=== PATIENT | male | born 1985 | race African-American/Black ===

== ENCOUNTER 2017-05-08 04:00 | Inpatient (IN) | payer OTHER ==
[~2017-05-08] VITALS: Ht 185.4 cm; Wt 99.8 kg
--- NOTE | ~2017-05-08 | PN ---
Unit #: [id number] #: [id number] Patient: KRAIG TORREZ [id number] [facility] [address] [place] [address] [id number] I MR#: [id number] NAME: KRAIG TORREZ ROOM: P201 Age: 32 Sex: M Admission Date: 05/08/2017 : 1985 Attending Physician: Lindsay Villela M.D. Admitting Physician: Christine Black PROGRESS NOTES DATE 05/10/2017 DISCUSSION Mr. Torrez is a 32-year-old, male who was seen today and chart was reviewed and case was discussed with the staff. He has been anxious, withdraw and rather seclusive to himself. Meanwhile, he has been cooperative with the treatment recommendations. He has been taking the medication and tolerating them fairly well with no reported side effects. MENTAL STATUS EXAM Young male who was casually dressed with fair personal hygiene, appears to be in no acute distress or discomfort. He was awake and alert on interaction with intact orientation. His mood was anxious with congruent affect. He denies any suicidal or homicidal ideation. Also, denies any auditory or visual hallucinations. His insight and judgement remains slightly impaired. TREATMENT PLAN 1. We will continue him on his current medications and treatment protocol. We will monitor his response to the medication and make further adjustments as needed. 2. We will continue to follow up. Dictated by... Christine Black/marcellus TD: 05/12/2017 02:30 JOB #: [id number] Unit #: [id number] #: [id number] Patient: KRAIG TORREZ JONAHSHAMEKA PROGRESS NOTES Page 1 of 1 X Lindsay Villela MD PROGRESS NOTE
--- NOTE | ~2017-05-08 | PN ---
Unit #: [id number] #: [id number] Patient: KRAIG TORREZ [id number] [facility] [address] [place] [address] [id number] I MR#: [id number] NAME: KRAIG TORREZ ROOM: [facility] Age: 32 Sex: M Admission Date: 05/08/2017 : 1985 Attending Physician: Lindsay Villela M.D. Admitting Physician: Christine Black PROGRESS NOTES DATE OF SERVICE 05/09/2017 DISCUSSION Mr. Torrez is a 32-year-old male with substance abuse and mood disorder who was seen today. Chart was reviewed and case was discussed with the staff. He has been anxious, withdrawn, and rather seclusive to himself. Meanwhile, he has been compliant with treatment recommendations and has been taking the medications and tolerating them fairly well. MENTAL STATUS EXAMINATION Young male who is casually dressed with fair personal hygiene and appears to be in no acute distress or discomfort. The patient was awake and alert on interaction with intact orientation. His mood is anxious with congruent affect. His speech is slow and goal-directed. He denies any suicidal or homicidal ideations. His insight and judgment remain slightly impaired. TREATMENT PLAN 1. We will continue him on his current medications and treatment protocol. We will monitor his response to the medications and make further adjustments as needed. 2. We will continue to follow up. Dictated by... Lindsay Villela M.D. IAA/bzg TD: 05/09/2017 09:29 JOB #: [id number] Unit #: [id number] #: [id number] Patient: KRAIG TORREZ PROGRESS NOTES Page 1 of 1 X Lindsay Villela MD PROGRESS NOTE
--- NOTE | ~2017-05-08 | PN ---
Unit #: [id number] #: [id number] Patient: KRAIG TORREZ [id number] [facility] [address] [place] [address] [id number] MR#: [id number] NAME: KRAIG TORREZ ROOM: P201 Age: 32 Sex: M Admission Date: 05/08/2017 : 1985 Attending Physician: Lindsay Villela M.D. Admitting Physician: Christine Black PROGRESS NOTES DATE May 11, 2017 DISCUSSION Mr. Torrez is a 32-year-old male, who was seen today and chart was reviewed and the case was discussed with the staff. He has been anxious, withdrawn, and rather seclusive to himself but does not appear to be in any acute distress or discomfort, and has been calm and cooperative, and compliant with the treatment recommendations and he has expressed a desire to go to be able to go to long-term rehab level of care after being discharged from the hospital. MENTAL STATUS EXAMINATION Young male, who was casually dressed with fair personal hygiene and appears to be in no acute distress or discomfort. He was awake and alert on interaction with intact orientation. His mood is anxious with a congruent affect. He denies any suicidal or homicidal ideations. His insight and judgment remain slightly impaired. TREATMENT PLAN 1. We will continue him on his current medications and treatment protocol, and will monitor his response to the medications, and make further adjustments as needed. 2. We will continue to followup. Dictated by... Christine Black/yuliay TD: 05/12/2017 13:10 JOB #: [id number] Unit #: [id number] #: [id number] Patient: KRAIG TORREZ PROGRESS NOTES Page 1 of 1 X Lindsay Villela MD PROGRESS NOTE
--- NOTE | ~2017-05-08 | DS ---
Unit #: [id number] #: [id number] Patient: KRAIG MONCADA [id number] [facility] [address] [place] [address] [id number] I MR#: [id number] NAME: KRAIG MONCADA ROOM: [facility] Age: 32 Sex: M Admission Date: 05/08/2017 : 1985 Discharge Date: 05/14/2017 Attending Physician: Lindsay Villela M.D. DISCHARGE SUMMARY REASON FOR ADMISSION Noncompliant with medication, using drugs. DIAGNOSTIC STUDIES LABORATORY RESULTS: Urine drug screen positive for amphetamine and marijuana. HOSPITAL COURSE The patient was admitted to inpatient unit on 05/08/2017 and discharged on 05/14/2017. The patient was treated on the inpatient unit with group therapy, individual therapy, chemical dependency group, medication management. The patient was responsive to treatment, showed improvement. Subsequently, the patient was discharged with a plan to follow up in outpatient program. DISCHARGE MEDICATIONS Risperdal 1 mg at bedtime for psychosis, Seroquel 100 mg at bedtime for psychosis. The patient needed two antipsychotic as the patient did not respond with one. The patient is not a candidate for clozapine at this time due to noncompliance. Recommending to taper off Risperdal once the patient is stable for at least 6 months. DISCHARGE DIAGNOSES Psychiatric: Bipolar mood disorder, recurrent, severe, depressed, with psychotic feature, F31.9; amphetamine use disorder, severe, F15.20; cannabis abuse disorder, moderate, F12.20. Secondary diagnosis: Deferred. Medical diagnosis: None. Stressors: Psychosocial stressors. DISCHARGE INSTRUCTIONS The patient to follow up in outpatient clinic as per geriatric social work professor. CONDITION ON DISCHARGE The patient was pleasant and cooperative. Denied any psychotic symptom or any suicidal ideation. PROGNOSIS Guarded. Unit #: [id number] #: [id number] Patient: KRAIG MONCADA DIET AND ACTIVITY As tolerated. Dictated by... Christine Kim/zack TD: 05/15/2017 02:21 JOB #: [id number] DISCHARGE SUMMARY Page 1 of 1 X Yogesh Starr MD X DISCHARGE SUMMARY
--- NOTE | ~2017-05-08 | PN ---
Unit #: [id number] #: [id number] Patient: KRAIG MONCADA [id number] [facility] [address] [place] [address] [id number] I MR#: [id number] NAME: KRAIG MONCADA ROOM: 12 Age: 32 Sex: M Admission Date: 05/08/2017 : 1985 Attending Physician: Lindsay Villela M.D. Admitting Physician: Christine Black PROGRESS NOTES DATE 05/13/2017 DISCUSSION Mr. Hudson is a 32-year-old male. The patient interviewed, chart reviewed, and obtained information from the nursing staff. The patient reports still feeling anxious, nervous, and wanted his Seroquel to be increased. The patient was able to participate in program, reported that he wanted to go to a thirty day program. 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 REVIEW OF SYSTEMS Complete review of systems unremarkable. MENTAL STATUS EXAMINATION General appearance: Patient dressed casually. Attention span and concentration, fair. Oriented in time, place, and person. Mood and affect, labile. Speech, monotone. Thought process, concrete. The patient denied any thoughts of harming self or others or any psychotic symptoms. Recent and remote memory, poor. Insight and judgment, poor. DIAGNOSES 1. Bipolar mood disorder, recurrent, severe, depressed, F31.9. 2. Amphetamine use disorder, severe, F15.20. ASSESSMENT/PLAN Advised to continue with the current medication and therapeutic protocol, and if needed consider further adjustment of medication. Dictated by... Christine Kim/yuliya TD: 05/14/2017 10:56 JOB #: [id number] Unit #: [id number] #: [id number] Patient: KRAIG MONCADA PROGRESS NOTES Page 1 of 1 X Yogesh Starr MD X PROGRESS NOTE
--- NOTE | ~2017-05-08 | PA ---
Unit #: [id number] #: [id number] Patient: KRAIG TORREZ [id number] [facility] [address] [place] [address] [id number] MR#: [id number] NAME: KRAIG TORREZ ROOM: P186 Age: 32 Sex: M Admission Date: 05/08/2017 : 1985 Date of Assessment: Attending Physician: Lindsay Villela M.D. Admitting Physician: Lindsay Villela M.D. PSYCHIATRIC ASSESSMENT DATE OF SERVICE 05/08/2017. IDENTIFYING DATA Mr. Torrez is a 32-year-old single male, who is a resident of [place], [place], and was self-referred to the hospital on a voluntary basis and was initially assessed at [facility], and then referred to us. CHIEF COMPLAINT "I'm doing a lot of drugs." HISTORY OF PRESENT ILLNESS Mr. Torrez is a 32-year-old male, who presented himself to the hospital reporting that he has not been taking his medication drugs as he stated that he has been snorting and smoking methamphetamine. He is unsure how much meth he is doing and reports doing it every other day, and reports he is in a lot of medication, but only remember Seroquel and stopped taking medication because "zombie fight me." He himself and reports he has been having more recently thoughts of hurting himself and the people in the house were lied about getting him white capsules and lied about their names, but reports not going to act on it and does not have a plan. He reported he is tired of doing drugs and and wants to get better to help something to live for and if he goes back out on the street, he will kill himself. 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 He was seen to be acutely psychotic with bizarre behavior, paranoia, agitation, aggression, irritability, and delusional behavior and was considered to be danger to self and others and therefore, recommendation for inpatient level of care for safety and stabilization was made and the patient was transferred to us. SUBSTANCE ABUSE HISTORY The patient reports history of cannabis and methamphetamine abuse, and more recently methamphetamine appears to be his drug of choice. PAST PSYCHIATRIC HISTORY The patient has had outpatient psychiatric treatment through [facility] and [facility] [place]. Review of the medical records indicate that he is supposed to be on Zoloft and Seroquel, but stopped taking his medications Unit #: [id number] #: [id number] Patient: KRAIG TORREZ and as such, has been decompensating. PAST MEDICAL HISTORY No acute or chronic medical illnesses. ALLERGIES Percocet. PERSONAL AND SOCIAL HISTORY A 32-year-old male, who reports that he is single, unemployed, and essentially homeless and has poor social support system. MENTAL STATUS EXAMINATION Young male who was casually dressed with fair personal hygiene, appears to be in no acute distress or discomfort. He was awake and alert on interaction with intact orientation to time, place, and person. His mood was anxious and depressed with a congruent affect. His speech was slow and restricted in content. His thought processes were disorganized with some looseness of associations, paranoid ideations, suicidal ideations, and delusional behavior. His insight and judgment remain significantly impaired. DIAGNOSTIC IMPRESSION Psychiatric: Bipolar disorder, most recent episode depressed, recurrent, moderate, with psychosis; methamphetamine dependence, moderate. Medical: None. Stressors: Moderate psychosocial stressors. TREATMENT PLAN 1. The patient has presented with history of substance abuse and mood disorder, and has been decompensating and will need inpatient hospitalization for detoxification, safety, and stabilization. We will start him back on his home medications. We will monitor his response and make further adjustments as needed. 2. Supportive therapy was provided to the patient. 3. Safe, structured, and nourishing environment will be provided. ESTIMATED LENGTH OF STAY 5 to 7 days. ABILITY TO HELP SELF Limited. WILLINGNESS TO HELP SELF The patient appears to be willing to help self. STRENGTHS 1. Communicative. 2. Cooperative. PROBLEMS 1. Chronic dysphoric symptoms. 2. Chronic chemical dependency. 3. Poor social support system. DISCHARGE CRITERIA This will be contingent upon the patient's ability to go through detox without having any significant withdrawal symptoms as well as his ability to stay safe to himself, particularly after discharge from the hospital. Unit #: [id number] #: [id number] Patient: KRAIG TORREZ Dictated by... Christine Black/zack TD: 05/09/2017 08:25 JOB #: [id number] PSYCHIATRIC ASSESSMENT Page 1 of 1 X Lindsay Villela MD X PSYCHIATRIC ASSESSMENT
--- NOTE | ~2017-05-08 | HP ---
Unit #: [id number] #: [id number] Patient: TRISTAN MONCADA [id number] [place] [address] [id number] MR#: [id number] NAME: TRISTAN MONCADA ROOM: [facility] Age: 32 Sex: M Admission Date: 05/08/2017 : 1985 Attending Physician: Lindsay Villela M.D. Admitting Physician: Lindsay Villela M.D. HISTORY AND PHYSICAL HISTORY OF PRESENT ILLNESS Tristan is a 32 year old admitted to [facility] because of his drug use. He smokes methamphetamine. PAST MEDICAL HISTORY History of illicit substance abuse to include methamphetamine. PAST SURGICAL HISTORY Nothing reported. ALLERGIES Percocet. SOCIAL HISTORY Smokes 1 pack per day. Denies alcohol. Admits to a history of illicit drug use to include methamphetamine. FAMILY HISTORY Medically noncontributory. REVIEW OF SYSTEMS CONSTITUTIONAL: No fever or chills. HEENT: Denies any sore throat, ear pain or runny nose. CARDIOVASCULAR: Denies chest pain, irregular heart rhythm or palpitations. CHEST: Denies shortness of breath or cough. No hemoptysis. GASTROINTESTINAL: Denies nausea, vomiting, diarrhea or chronic constipation. ENDOCRINE: Denies history of increased thirst or urination. No recent significant weight loss or gain. GENITOURINARY: Denies dysuria, frequency, or hematuria. SKIN: Denies any rashes. HEMATOLOGIC: Denies history of increased bleeding or bruising. MUSCULOSKELETAL: Denies any hot, swollen joints. No generalized muscle pain. NEUROLOGIC: Denies problems with vision or speech. No frequent, severe headaches. No numbness, tingling or weakness in any extremities. Denies loss of bladder or bowel control. CURRENT MEDICATIONS 1. Milk of Magnesia p.r.n. 2. Maalox p.r.n. 3. Nicotine patch 21 mg daily. Unit #: [id number] #: [id number] Patient: TRISTAN MONCADA PHYSICAL EXAMINATION GENERAL: Alert, well-nourished, in no apparent distress. VITAL SIGNS: Blood pressure 113/76, heart rate 90, respirations 16, temperature 98.6. WEIGHT: 220. HEIGHT: 6 feet 1 inch. SKIN: Warm and dry without rash or lesion. HEENT: Normocephalic. TMs not viewed. Oral and nasal passages clear. Conjunctivae clear. PERRLA. EOMs intact. NECK: Supple without lymphadenopathy or thyromegaly. HEART: Regular rate and rhythm without murmur. LUNGS: Clear. ABDOMEN: Soft, nontender. : Not done. EXTREMITIES: No evidence of cyanosis, clubbing or edema. Moves all without focal deficit. NEUROLOGICAL: Grossly within normal limits. Cranial Nerves: II: Visual carranza are intact. III, IV AND : Extraocular movements are intact. Pupils are equal, round and reactive to light. V: Facial sensation is grossly normal. VII: Facial movements and expression are normal. VIII: Auditory acuity grossly intact. IX, X: Uvula is midline. Phonation is normal. XI: Patient shrugs shoulders and turns head normally. XII: Tongue protrudes in the midline. Sensory and Motor Function: Sensory and motor sensation is grossly normal. Motor: moves all extremities well. Coordination: Gait is normal. Deep Tendon Reflexes: Intact. IMPRESSION Psychiatric admission. RECOMMENDATIONS PSYCHIATRIC: Per psychiatrist. MEDICAL: See no contraindication to participate in facility's activities. MEDICAL PROGNOSIS Good. MEDICAL CONDITION Stable. Dictated by... Janet Simms P.A.-C. for Christine Martell/estela TD: 05/08/2017 16:01 JOB #: [id number] Unit #: [id number] #: [id number] Patient: TRISTAN MONCADA HISTORY AND PHYSICAL Page 1 of 1 X Janet Simms HISTORY AND PHYSICAL
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
[2017-05-09 09:41] LABS: BASOPHIL# 0.1 X10e3 (0-0.3); BASOPHIL% 0.6 % (0-2.5); EOSINOPHIL# 0.4 X10e3 (0-0.7); EOSINOPHIL% 3.9 % (0.0-7.0); HEMATOCRIT 45.7 % (38.0-50.0); HEMOGLOBIN 15.2 gm/dL (13.0-16.0); LYMPHOCYTE# 1.6 X10e3 (1.0-3.5); LYMPHOCYTE% 17.6 % (17.0-45.0); MEAN CELL VOLUME 91.1 FL (83-96); MEAN CORPUSCULAR HEMOGLOBIN 30.4 PG (28-34); MEAN CORPUSCULAR HGB CONC 33.4 g/dL (30-36); MEAN PLATELET VOLUME 9.7 FL (6.5-11.5); MONOCYTE# 1.1 X10e3 (0-1.0); MONOCYTE% 12.1 % (3.0-12.0); NEUTROPHIL# 6.1 X10e3 (1.5-7.1); NEUTROPHIL% 65.8 % (40-75); PLATELET COUNT 236 X10e3 (140-420); RED BLOOD COUNT 5.01 X10e (3.90-5.60); RED CELL DISTRIBUTION WIDTH 13.4 % (11.0-15.5); WHITE BLOOD COUNT 9.2 X10e3 (4.0-10.5)
[2017-05-09 09:55] LABS: ALBUMIN SERUM 3.5 g/dL (3.5-5.0); BILIRUBIN,TOTAL 0.8 mg/dL (0.2-2.0); CALCIUM SERUM 9.1 mg/dL (8.4-10.2); DIFF IND NO; GLOM FILT RATE Estimated 114.9 mL/min (>60); POTASSIUM 4.4 mmol/L (3.5-5.1); PROTEIN TOTAL SERUM 6.2 g/dL (6.0-8.3)
[2017-05-10 11:57] LABS: URINE APPEARANCE CLEAR; URINE BILIRUBIN NEG (NEG); URINE BLOOD NEG (NEG); URINE COLOR YELLOW; URINE GLUCOSE NEG (NEG); URINE KETONE NEG (NEG); URINE LEUKOCYTE ESTERASE 1+ (NEG); URINE NITRATE NEG (NEG); URINE PH 6.5 (5-8); URINE PROTEIN NEG (NEG); URINE SPECIFIC GRAVITY 1.008 (1.003-1.035); URINE UROBILINOGEN 0.2 MG/DL (NEG)
[2017-05-10 12:00] LABS: URBCS1 AUWI 0-2 /[HPF] (0-2); URINE BACTERIA AUWI NEG (NEGATIVE); URINE SQUAMOUS EPITHELIAL CELL NONE SEEN /[HPF]
[2017-05-10 12:04] LABS: AMPHETAMINE POS (NEG); BARBITURATES NEG (NEG); BENZODIAZEPINES NEG (NEG); COCAINE NEG (NEG); MARIJUANA POS (NEG); OPIATES NEG (NEG); TRICYCLIC ANTIDEPRESSANTS NEG (NEG); U METHADONE NEG (NEG)
== END 2017-05-14 16:57 | disposition home or self-care (01) | DRG 885 ==
LOC: P1S 07:14 → P1E 07:14 → P2S 05-11 21:53 → P1S 05-12 14:42
PROVIDERS: Psychiatry & Neurology Psychiatry
PROC: HZ2ZZZZ Detoxification Services for Substance Abuse Treatment (ICD-10-PCS; principal; 2017-05-08)
DX: F31.5 Bipolar disorder, current episode depressed, severe, with psychotic features (principal); F15.20 Other stimulant dependence, uncomplicated; F12.20 Cannabis dependence, uncomplicated
CPT/HCPCS: 80053; 80307; 81003; 85025